=== PATIENT | female | born 1960 | race Caucasian/White ===

== ENCOUNTER → 2018-03-23 | Day surgery (SDC) | payer OTHER ==
[~2018-03-23] MED LIST: ASA81 MG PO; ATENOLOL25 MG; CALTRATE 600+D1 EAC1 PO; CYMBALTA30 MG; DIOVAN HCT 1601 EAC1 PO; DIOVAN HCT 161 UDTA1; OXYC1TAB9 PO; PROBIOTIC & AC1 EACH PO; SYNTHROID50 MCG; ZANTAC300 MG PO; ZOCOR5 MG
== END | disposition home or self-care (01) ==
LOC: ADM 03-21 10:15 → AMB-ENDOS 07:41
DX: K57.30 Diverticulosis of large intestine without perforation or abscess without bleeding (principal); K64.4 Residual hemorrhoidal skin tags; K64.8 Other hemorrhoids

== ENCOUNTER 2018-08-07 14:10 | Emergency (ER) | payer OTHER ==
[~2018-08-07] VITALS: Ht 152.4 cm; Wt 82.1 kg
== END 2018-08-07 22:15 | disposition home or self-care (01) ==
LOC: ER 14:10
DX: K58.0 Irritable bowel syndrome with diarrhea (principal)